=== PATIENT | female | born 1935 | race Caucasian/White ===

== ENCOUNTER 2022-06-23 13:59 | Emergency (ER) | payer MEDICARE, OTHER ==
[~2022-06-23] VITALS: Ht 152.4 cm; Wt 68.2 kg
[2022-06-23] MEDS ORDERED: AMLO2.5T96 PO (14:07)
[2022-06-23] MEDS ORDERED: ATOR40TA28 PO (14:07)
[2022-06-23] MEDS ORDERED: METH-386 PO (14:07)
[2022-06-23] MEDS ORDERED: MELO-381 PO (14:07)
[2022-06-23] MEDS ORDERED: PANT-31 PO (14:07)
[2022-06-23] MEDS ORDERED: ALPR-705 PO (14:07)
[2022-06-23] MEDS ORDERED: CHOL25TA4 PO (14:07)
[2022-06-23] MEDS ORDERED: LUTE20TA PO (14:07)
[2022-06-23] MEDS ORDERED: ALBU8HFA IH (14:07)
[2022-06-23] MEDS ORDERED: CYAN500T56 PO (14:07)
[2022-06-23] MEDS ORDERED: ONDA-104 PO (14:07)
[2022-06-23] MEDS ORDERED: DILT30TA3 PO (14:07)
[2022-06-23] MEDS ORDERED: PARO-38 PO (14:07)
[2022-06-23] MEDS ORDERED: LACT10SO10 PO ×2 (14:07→17:02)
[2022-06-23] MEDS ORDERED: FAMO20 PO (14:07)
[2022-06-23] MEDS ORDERED: MONT-35 PO (14:07)
[2022-06-23] MEDS ORDERED: NACL1 PO (14:15)
[2022-06-23] MEDS ORDERED: FLUT1BLS9 IH (14:15)
[2022-06-23 15:24] LABS: BASOPHILS % (AUTO) 0.4 % (0.0-2.0); EOSINOPHILS % (AUTO) 1.4 % (1.0-6.0); HEMATOCRIT 39.6 % (36-46); HEMOGLOBIN 12.9 g/dL (12.0-16.0); LYMPHOCYTES # (AUTO) 2.1 K/uL (1.0-4.8); LYMPHOCYTES % (AUTO) 25.9 % (22.0-44.0); MEAN CORPUSCULAR HEMOGLOBIN 27.4 pg (26.0-34.0); MEAN CORPUSCULAR HGB CONC 32.7 G/dL (31.0-37.0); MEAN CORPUSCULAR VOLUME 84 fL (80-100); MONOCYTES # (AUTO) 0.8 K/uL (0.1-1.0); MONOCYTES % (AUTO) 9.4 % (2.0-9.0); NEUTROPHILS # (AUTO) 5.2 K/uL (1.8-7.7); NEUTROPHILS % (AUTO) 62.9 % (40.0-70.0); PLATELET COUNT (AUTO) 369 K/uL (150-450); RED BLOOD CELL COUNT(AUTO) 4.72 MIL/uL (4.00-5.20); RED CELL DISTRIBUTION WIDTH 17.9 % (11.5-14.5)
[2022-06-23 15:31] LABS: ANION GAP 7 mmol/L (8-16); CALCIUM, TOTAL 8.8 mg/dL (8.8-10.5); CARBON DIOXIDE 29 mmol/L (22-29); CHLORIDE 101 mmol/L (98-107); CREATININE 0.67 mg/dL (0.60-1.30); GLUCOSE,RANDOM 102 mg/dL (70-110); POTASSIUM 4.4 mmol/L (3.5-5.1); SODIUM SERUM 137 mmol/L (136-145); UREA NITROGEN, BLOOD 9 mg/dL (7-18)
[2022-06-23 15:39] LABS: GLOMERULAR FILTR. RATE CALC > 60 mL/min (>60)
[2022-06-23 15:46] LABS: ALANINE AMINOTRANSFERASE 30 U/L (12-78); ALBUMIN 3.4 g/dL (3.4-5.0); ALKALINE PHOSPHATASE 61 U/L (46-116); ASPARTATE AMINOTRANSFERASE 23 U/L (15-37); BILIRUBIN,TOTAL 0.4 mg/dL (0.1-1.0); THYROID STIMULATING HORMONE 0.68 uIU/mL (0.36-3.74); TOTAL PROTEIN, SERUM 7.3 g/dL (6.4-8.2)
[2022-06-23] MEDS ORDERED: MAGNESIUM HYDROXIDE SUSPENSION 30 ML UDCUP PO ONE (16:15)
[2022-06-23] MEDS ORDERED: SODIUM PHOS/SODIUM BIPHOS 133 ML ENEMA PR ONE (17:00)
[2022-06-23 17:12] VITALS: BP 118/70
== END 2022-06-23 17:21 | disposition home or self-care (01) ==
LOC: EMS 14:02
DX: K59.00 Constipation, unspecified (principal); E78.00 Pure hypercholesterolemia, unspecified; F10.20 Alcohol dependence, uncomplicated; I10 Essential (primary) hypertension; J45.909 Unspecified asthma, uncomplicated; Z85.9 Personal history of malignant neoplasm, unspecified; Z90.12 Acquired absence of left breast and nipple; Z88.5 Allergy status to narcotic agent
CPT/HCPCS: 74176; 80053; 84443; 85025; 99284